=== PATIENT | male | born 1970 | race Caucasian/White ===

== ENCOUNTER 2020-07-23 13:14 | Emergency (ER) | payer OTHER, SELFPAY ==
[2020-07-23 13:21] VITALS: BP 128/97; PULSE 69; RESP 18; TEMP 36.5; O2SAT 95
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
--- NOTE | 2020-07-23 14:04 | NUR.NOTE ---
Nursing Note: Referral given to Care Management to assist patient to get an appt with dentist/oral surgeon and for PCP establish care. Angeline Gauthier
--- NOTE | 2020-07-27 14:08 | CMPROGNOTE_ITS ---
- If Service Date Differs Date of service: 07/27/20 Time of Service: 14:08 Care Management Progress Note Chris is seen in he ED on 07/23/2020 for a dental injury. NORRIS is asked by ED provider to assist Chris in obtaining a follow up appointment with a dentist and in establishing care with a PCP in the [place] area. NORRIS telephones Chris to inquire if he's ever had a dentist or PCP. He advises he has had four or five different PCPs in the last five years and states once he's established with someone, they retire or move out of the area. He goes on to say that he now goes to [facility] for his medical needs and prefers to continue going to [facility] as needed. Chris states he has not seen a dentist in many years. A friend of his has recommended the [facility] but he doesn't know if they accept workman's comp insurance. NORRIS telephones [facility] ) and is advised they are not accepting new patients at this time. NORRIS also contacts Jamir Salcedo D[facility] ([phone]) and is told they do not accept workman's comp insurance, and [facility] ([phone]) only sees uninsured patients. [facility] in [place] ([phone]) is accepting new patients, will take workman's comp insurance, and can see him on an emergency basis. NORRIS calls Chris to ask that he contact [facility] directly as they are awaiting his phone call to schedule an appointment. Chris advises [facility] is a [facility] and he is not thrilled about going to their office. NORRIS provides him contact information in case he changes his mind.
== END 2020-07-23 14:25 | disposition home or self-care (01) ==
PROVIDERS: Emergency Provider Physician Assistant
DX: S09.8XXA Other specified injuries of head, initial encounter (principal); W22.8XXA Striking against or struck by other objects, initial encounter; K08.89 Other specified disorders of teeth and supporting structures
CPT/HCPCS: 99283